=== PATIENT | male | born 1995 | race Hispanic/Latino ===

== ENCOUNTER 2016-09-27 21:44 | Emergency (ER) | payer BC ==
[~2016-09-27] VITALS: Ht 172.7 cm; Wt 69.2 kg
[2016-09-27 22:48] LABS: HEMATOCRIT 44.9 % (38.0-50.0); MCH 28.8 PG (29.0-34.0); MCHC 33.4 G/DL (30.0-36.0); MCV 86.2 FL (86-99); MEAN PLAT.VOLUME 10.2 uM^3 (9.0-12.4); PLATELET COUNT 234 K/uL (156-360); RBC DIS.WIDTH-SD 38.3 % (39-53); RED BLOOD COUNT 5.21 M/uL (4.00-5.50); WHITE BLOOD COUNT 9.4 K/uL (4.1-10.2)
[2016-09-27 22:59] LABS: CHLORIDE 103 mEq/L (99-109); POTASSIUM 3.9 mEq/L (3.7-5.4); SODIUM 140 mEq/L (136-147)
[2016-09-27 23:00] LABS: GLUCOSE 105 mg/dL (70-99)
[2016-09-27 23:02] LABS: ANION GAP 10 MEQ/L (2-14)
[2016-09-27 23:04] LABS: GFR ESTIMATE (CALCULATED) > 59 mL/min/
[2016-09-27 23:05] LABS: UREA NITROGEN (BUN) 21 mg/dL (9-23)
[2016-09-27 23:09] LABS: TROP-I INTERPRETATION NEGATIVE; TROPONIN-I < 0.01 ng/mL (0.0-0.30)
[2016-09-27 23:47] VITALS: BP 122/60
== END 2016-09-27 23:48 | disposition home or self-care (01) ==
LOC: EME 21:44
PROVIDERS: Emergency Medicine
DX: F41.9 Anxiety disorder, unspecified (principal)
CPT/HCPCS: 80048; 84484; 85027; 93005; 99281; 99283